=== PATIENT | male | born 1995 | race Caucasian/White ===

== ENCOUNTER → 2016-09-25 00:15 | Emergency (ER) | payer OTHER ==
[~2016-09-25 00:15] MED LIST: ALBUTEROL17 GM INH; AMOXICILLIN PO; COMBIVENT INH14.7 GM INH; COMBIVENT MININEB INH; FLOVENT HFA12 GM INH; IBUPROFEN800 MG PO; PEPCID40 MG PO; PREDNISONE PO; PULMICORT200 MCG/AE INH
== END | disposition left against medical advice (07) ==
LOC: CED 00:15
DX: Z53.21 Procedure and treatment not carried out due to patient leaving prior to being seen by health care provider (principal)